=== PATIENT | female | born 2000 | race American Indian/Alaskan Native ===

== ENCOUNTER 2022-04-03 20:01 | Emergency (ER) | payer SELFPAY ==
[2022-04-03 23:47] LABS: HCG Qualitative,Urine Negative (Negative)
--- NOTE | 2022-04-04 00:16 | XRay Report ---
CHEST 2 VIEWS INDICATION / CLINICAL INFORMATION: chest pain. COMPARISON: None available. FINDINGS: SUPPORT DEVICES: None. HEART / MEDIASTINUM: No significant abnormality. LUNGS / PLEURA: No significant pulmonary or pleural abnormality. No pneumothorax. ADDITIONAL FINDINGS: No significant additional findings. IMPRESSION: 1. No acute findings. Signer Name: Marquise Chou DO Signed: 04/04/2022 12:12 AM Workstation Name: [id number]
[2022-04-04] MEDS ORDERED: IBUPROFEN 600 MG TAB PO ONE (03:26)
[2022-04-04] MEDS ORDERED: diazePAM 5 MG TAB PO ONE (03:26)
--- NOTE | 2022-04-04 03:33 | Emergency Department Report ---
ED General Adult HPI - General Chief complaint: Chest Pain Stated complaint: CHEST PAIN Source: patient Mode of arrival: Ambulatory Limitations: No Limitations - History of Present Illness Initial comments: Patient is a nulliparous 21-year-old -Citizen Of [place] female with no past medical history presents to the ED with complaint of acute onset persistent anterior chest wall pain that radiates to the mid posterior thoracic area for the last 5 days after heavy lifting at work. 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 Patient states that the pain has been persistent and worse especially with movement or deep inhalation. Patient denies shortness of breath, numbness and tingling or weakness of upper and lower extremities bilaterally, low back pain, nausea and vomiting, headache, fall, traumatic injury, change in vision or palpitations, cough or abdominal pain. MD Complaint: Anterior chest wall pain that radiates to the mid posterior thoracic area -: Sudden Location: chest (Anterior chest wall pain) Radiation: back (Mid posterior thoracic area) Severity scale (0 -10): 7 Quality: aching, sharp Consistency: intermittent Improves with: rest Worsens with: movement, other (Left leg) Associated Symptoms: chest pain (Anterior chest wall pain), other (Mid posterior thoracic pain). denies: denies other symptoms, confusion, cough, diaphoresis, fever/chills, headaches, loss of appetite, malaise, nausea/vomiting, rash, seizure, shortness of breath, syncope, weakness Treatments Prior to Arrival: none - Related Data Previous Rx's Medication Instructions Recorded Last Taken Type Baclofen 20 mg PO Q12H PRN #20 tab 04/04/22 Unknown Rx Naproxen 500 mg PO Q12H PRN #30 tab 04/04/22 Unknown Rx Allergies Allergy/AdvReac Type Severity Reaction Status Date / Time No Known Allergies Allergy Verified 04/03/22 21:15 ED Review of Systems ROS: Stated complaint: CHEST PAIN Other details as noted in HPI Constitutional: denies: chills, fever Eyes: denies: eye pain, eye discharge, vision change ENT: denies: ear pain, throat pain Respiratory: denies: cough, shortness of breath, wheezing Cardiovascular: chest pain (Anterior chest wall pain). denies: palpitations Endocrine: no symptoms reported Gastrointestinal: denies: abdominal pain, nausea, vomiting, diarrhea Genitourinary: denies: urgency, dysuria, discharge Musculoskeletal: back pain (Mid posterior thoracic pain). denies: joint swelling, arthralgia Skin: denies: rash, lesions Neurological: denies: headache, weakness, paresthesias Psychiatric: denies: anxiety, depression Hematological/Lymphatic: denies: easy bleeding, easy bruising ED Past Medical Hx - Past Medical History Previous Medical History?: No - Surgical History Past Surgical History?: No - Social History Smoking Status: Never Smoker Substance Use Type: None - Medications Home Medications: Home Medications Medication Instructions Recorded Confirmed Last Taken Type Baclofen 20 mg PO Q12H PRN #20 tab 04/04/22 Unknown Rx Naproxen 500 mg PO Q12H PRN #30 tab 04/04/22 Unknown Rx ED Physical Exam - General Limitations: No Limitations General appearance: alert, in no apparent distress - Head Head exam: Present: atraumatic, normocephalic, normal inspection - Eye Eye exam: Present: normal appearance, PERRL, EOMI Pupils: Present: normal accommodation - ENT ENT exam: Present: normal exam, normal orophraynx, mucous membranes moist, TM's normal bilaterally, normal external ear exam - Neck Neck exam: Present: normal inspection, full ROM. Absent: tenderness - Respiratory Respiratory exam: Present: normal lung sounds bilaterally, chest wall tenderness (Palpable reproducible anterior chest wall tenderness). Absent: respiratory distress, wheezes, rales, rhonchi, accessory muscle use, decreased breath sounds, prolonged expiratory - Cardiovascular Cardiovascular Exam: Present: regular rate, normal rhythm, normal heart sounds. Absent: systolic murmur, diastolic murmur, rubs, gallop - GI/Abdominal GI/Abdominal exam: Present: soft, normal bowel sounds. Absent: tenderness, guarding, rebound, hyperactive bowel sounds, hypoactive bowel sounds, organomegaly - Extremities Exam Extremities exam: Present: normal inspection, full ROM, normal capillary refill - Back Exam Back exam: Present: normal inspection, full ROM, tenderness (Palpable mid posterior thoracic paraspinal musculoskeletal tenderness), muscle spasm, paraspinal tenderness. Absent: CVA tenderness (R), CVA tenderness (L), vertebral tenderness - Neurological Exam Neurological exam: Present: alert, oriented X3, CN II-XII intact, normal gait, reflexes normal - Psychiatric Psychiatric exam: Present: normal affect, normal mood - Skin Skin exam: Present: warm, dry, intact, normal color. Absent: rash ED Course Vital Signs 04/03/22 21:06 Temperature 97.8 F Pulse Rate 66 Respiratory 18 Rate Blood Pressure 107/67 O2 Sat by Pulse 100 Oximetry ED Medical Decision Making - Radiology Data Radiology results: report reviewed, image reviewed [facility] [address] [place] [address] XRay Report Signed Patient: MEGHA VIERA MR#: [id number] : 2000 Acct:[id number] Age/Sex: 21 / F ADM Date: 04/03/22 Loc: ED Attending Dr: Ordering Physician: ED MD JOVANNY Date of Service: 04/03/22 Procedure(s): XR chest routine 2V Accession Number(s): [id number] cc: ED MD JOVANNY Fluoro Time In Minutes: CHEST 2 VIEWS INDICATION / CLINICAL INFORMATION: chest pain. COMPARISON: None available. FINDINGS: SUPPORT DEVICES: None. HEART / MEDIASTINUM: No significant abnormality. LUNGS / PLEURA: No significant pulmonary or pleural abnormality. No pneumothorax. ADDITIONAL FINDINGS: No significant additional findings. IMPRESSION: 1. No acute findings. Signer Name: Marquise Chou DO Signed: 04/04/2022 12:12 AM Workstation Name: [id number] Transcribed By: JACQUELIN Dictated By: MARQUISE CHOU DO Electronically Authenticated By: MARQUISE CHOU DO Signed Date/Time: 04/04/2211 DD/ TD/TT: - Medical Decision Making This is a nulliparous 21-year-old -Citizen Of [place] female with no past medical history presents to the ED with complaint of acute onset persistent anterior chest wall pain that radiates to the mid posterior thoracic area for the last 5 days after heavy lifting at work. 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 Patient states that the pain has been persistent and worse especially with movement or deep inhalation. In the ED, patient is alert and oriented x3 and is not in any distress. Patient was treated for pain in the ED. Chest x-ray showed no acute cardiopulmonary abnormalities or pneumonitis. Given the fact that the patient symptoms are due to heavy lifting, patient symptoms are likely due to muscle strain or muscle spasm. Patient was therefore discharged home on pain medications and advised to follow-up with her primary care physician in 5 to 7 days for reevaluation or return to the ED immediately if symptoms get worse - Differential Diagnosis Costochondritis; thoracic muscle strain; thoracic muscle spasm Critical care attestation.: If time is entered above; I have spent that time in minutes in the direct care of this critically ill patient, excluding procedure time. ED Disposition Clinical Impression: Muscle strain of anterior chest wall, Strain of muscle and tendon of back wall of thorax, initial encounter, Spasm of thoracic back muscle Disposition: HOME / SELF CARE / HOMELESS Is pt being admited?: No Does the pt Need Aspirin: No Condition: Stable Instructions: Muscle Cramps and Spasms, [id number], Muscle Strain, [id number], Thoracic Strain Rehab-SportsMed, Back Injury Prevention, Easy-to- Read Additional Instructions: Chest x-ray showed no acute cardiopulmonary abnormalities or pneumonitis. Your symptoms are likely due to muscle strain and muscle spasm of the chest wall and mid posterior thoracic area due to heavy lifting at work. Therefore take medication with food, drink plenty of fluids and follow-up with your primary care physician in 7 to 10 days for reevaluation. Return to the ED immediately if symptoms get worse. Prescriptions: Baclofen 20 mg PO Q12H PRN #20 tab PRN Reason: Muscle Spasm Naproxen 500 mg PO Q12H PRN #30 tab PRN Reason: Pain , Severe (7-10) Referrals: [facility] [Provider Group] - 7-10 days Time of Disposition: 03:42 Print Language: [place]
[2022-04-04 04:21] VITALS: BP 112/73
== END 2022-04-04 04:58 | disposition home or self-care (01) ==
LOC: ED 20:01
DX: S29.011A Strain of muscle and tendon of front wall of thorax, initial encounter (principal); S29.012A Strain of muscle and tendon of back wall of thorax, initial encounter; M62.830 Muscle spasm of back; Z79.899 Other long term (current) drug therapy; X58.XXXA Exposure to other specified factors, initial encounter; Y93.89 Activity, other specified; Y92.89 Other specified places as the place of occurrence of the external cause; Y99.8 Other external cause status
CPT/HCPCS: 71046; 81025; 93005; 99284